=== PATIENT | male | born 1955 | race Caucasian/White ===

== ENCOUNTER 2025-04-01 07:24 | Outpatient (CLI) | payer MEDICARE, SELFPAY ==
--- NOTE | ~2025-04-01 | PE_ITS ---
EXAMINATION: PET_PETPSMAST_PT DATE: 04/01/2025 09:47 INDICATION: Prostate cancer. TECHNIQUE: 5.519 mCi of Ga-68 gozetotide was administered intravenously. Low dose computed tomography (CT) images were acquired from the base of the brain to the proximal thighs for attenuation correction and anatomic localization. Automated exposure control was employed. Dose-length product (DLP) was 1548 mGy- cm. Positron emission tomography (PET) images were acquired in the same distribution. COMPARISON: CT abdomen and pelvis 03/31/2015 FINDINGS: Head/neck: There are no pathologically enlarged lymph nodes. Chest: There is no pneumonia or pleural effusion. The heart size is normal. There are coronary artery calcifications. No pericardial effusion. Abdomen/pelvis/proximal thighs: The liver is normal. There are gallstones in the gallbladder, which is normal in size. The spleen, pancreas, and adrenal glands are normal. There are 2 stones in right kidney measuring up to 16 mm. There are stones in left kidney measuring up to 11 mm. There is a 15 mm cyst in left kidney. The prostate is moderately enlarged. There is increased activity in the prostate on the left with maximum SUV of 11.4. There is a left inguinal hernia containing fat. There is diverticulosis of the colon without evidence of diverticulitis. There are no dilated loops of bowel. There are no pathologically enlarged lymph nodes. There is no free intraperitoneal fluid. There is no osseo us malignancy. IMPRESSION: 1. Moderately enlarged prostate with increased activity on the left, consistent with primary malignancy. No evidence of metastatic disease. Reviewed, dictated and finalized at location E.
== END 2025-04-01 07:25 | disposition home or self-care (01) ==
PROVIDERS: PCP Internal Medicine; Visit Provider Radiology Radiation Oncology
DX: C61 Malignant neoplasm of prostate (principal); N40.0 Benign prostatic hyperplasia without lower urinary tract symptoms
CPT/HCPCS: 78815; A9596